=== PATIENT | female | born 1955 | race Caucasian/White ===

== ENCOUNTER 2019-05-16 22:08 | Inpatient (IN) | payer OTHER ==
[2019-05-16 22:22] VITALS: BMI 38.9
[2019-05-17] MEDS ORDERED: ALBUTEROL SO4 2.5/IPRATROPIUM 0.5 INH SOL 3 ML VIAL.NEB. NEB ONE ×2 (00:03→00:06)
[2019-05-17 00:04] LABS: EOS % 3.2 % (0-4.5); HEMATOCRIT 34.9 % (32.4-45.2); HEMOGLOBIN 11.5 GM/dL (10.7-15.3); MCH 28.4 pg (25.7-33.7); MCHC 33.1 g/dl (32.0-36.0); MEAN PLT VOLUME 9.5 fl (7.5-11.1); MONO % 9.6 % (3.8-10.2); NEUT % 52.2 % (42.8-82.8); PLATELET COUNT 212 K/MM3 (134-434); RBC 4.06 M/mm3 (3.60-5.2); RDW 14.9 % (11.6-15.6); WHITE BLOOD COUNT 5.6 K/mm3 (4.0-10.0)
[2019-05-17 00:18] LABS: INR 1.01 (0.83-1.09); PROTHROMBIN TIME (PATIENT) 11.9 SEC (9.7-13.0)
[2019-05-17 00:20] LABS: ACTIVATED PTT 29.9 SECONDS (25.2-36.5)
--- NOTE | 2019-05-17 00:40 | PDOC ---
History of Present Illness - General Chief Complaint: Edema Stated Complaint: SENT BY PCP/LEG SWELLING Time Seen by Provider: 05/16/19 23:13 - History of Present Illness Initial Comments: Dariela Da Silva is a 64yo woman with a PMH of CHF s/p pacemaker, asthma, s/p bilateral knee replacements who presents with left leg pain, swelling, and redness since Tuesday. She additionally reports that she has felt "dizzy" and lost her balance for 2-3 days; she says her entire left side feels numb and weak. Ms Da Silva says that the left leg swelling first started 5 days ago, but she was reluctant to come to the ED. She was attempting to deal with the pain at home, but it has not lessened. The leg is tender to touch, especially at the posterior calf and behind the knee. She has had difficulty ambulating due to the pain. She denies any injury, fall, or other trauma to the leg. She has not traveled recently, does not take hormone supplements, has not been immobilized, and has no history of cancer; however, she states that both her parents had blood clots. She is not sure what the circumstances were for either incident. In addition to the swelling and pain, Ms Da Silva also says that the left side, the leg more than the arm, feels numb and weak for a few days. She is not sure exactly when this started. She denies any acute onset of difficulty breathing though notes that her asthma has been bothering her. She denies fevers, chest pain, or other recent symptoms. She has been taking her medications as prescribed. Past History - Past Medical History Allergies/Adverse Reactions: Allergies Allergy/AdvReac Type Severity Reaction Status Date / Time No Known Drug Allergies Allergy Verified 05/16/19 22:22 Home Medications: Ambulatory Orders Alprazolam 0.5 mg PO BID 05/16/19 Carvedilol 25 mg PO DAILY 05/16/19 Chlorthalidone 25 mg PO DAILY 05/16/19 Montelukast Na [Singulair -] 10 mg PO HS 05/16/19 Sertraline HCl [Zoloft] 100 mg PO DAILY 05/16/19 Spironolactone 25 mg PO DAILY 05/16/19 Albuterol 2.5/Ipratropium 0.5 [Duoneb -] 1 amp NEB PRN 05/17/19 Albuterol Sulfate [Proair Hfa] 8.5 gm IH PRN 05/17/19 Calcium (Oyster Shell) [Os-Uriah 500Mg -] 500 mg PO DAILY 05/17/19 Cyanocobalamin (Vitamin B-12) [Vitamin B12] 2,500 mcg PO DAILY 05/17/19 Anemia: Yes Asthma: Yes Cardiac Disorders: Yes (HTN) COPD: No CHF: Yes HTN: Yes Psychiatric Problems: Yes (anxiety) Seizures: Yes (2004 X1(STRESS RELATED)) Other medical history: osteoproesis, PPM, - Surgical History Cardiac Surgery: Yes (defib/PPM) Orthopedic Surgery: Yes (LKR -08/2014) - Immunization History Immunization Up to Date: No - Suicide/Smoking/Psychosocial Hx Smoking History: Never smoked Information on smoking cessation initiated: No Hx Alcohol Use: No Drug/Substance Use Hx: No Substance Use Type: None Review of Systems - Review of Systems Comments:: General: No fevers, no chills, no weight or appetite change, no malaise HEENT: No changes in vision, no changes in hearing, no congestion, no sore throat CV: No chest pain, no palpitations, no LE edema Pulm: No SOB, no cough, + wheezing and h/o asthma GI: No nausea or vomiting, no change in bowel habits, no melena : No frequency, no urgency, no dysuria Musc: No back pain, no joint swelling, no recent injury. See HPI Skin: No rash, no lesions, no erythema Endo: No excessive thirst, no heat/cold intolerance Heme: No unusual bruising or bleeding, no swollen glands Neuro: See HPI Vasc: No claudication Psych: No recent change in mood, no SI or HI *Physical Exam - Vital Signs Last Vital Signs Temp Pulse Resp BP Pulse Ox 98.4 F 60 18 148/58 L 100 05/16/19 22:18 05/16/19 22:18 05/16/19 22:18 05/16/19 22:18 05/16/19 22:18 - Physical Exam Comments: General: Comfortable, no acute distress HEENT: PERRL, EOMI, MMM, voice normal, normal neck ROM Cards: RRR, no murmur appreciated Pulm: Comfortable on room air, wheezing b/l Abd: Soft, nontender, nondistended Ext: Atraumatic. 2+ BLE edema with visible swelling and erythema of the left leg below the knee. LLE tender to light palpatin at posterior calf and popliteal fossa. Unable to hold either leg off the bed, but left falls immediate and right is held up for 1-2 seconds. Vasc: Extremities WWP Skin: Normal color, no rashes or lesions Neuro: A&Ox3, CN grossly intact, normal speech, Rt arm with trace drift. Left leg appears weaker than right, as above. Sensation to light touch feels "different" on entire left side (forehead to feet) Psych: Mood appropriate to situation ED Treatment Course - LABORATORY CBC & Chemistry Diagram: 05/16/19 23:55 05/16/19 23:55 - ADDITIONAL ORDERS Additional order review: Laboratory Results 05/16/19 23:50 PT with INR 11.90 INR 1.01 PTT (Actin FS) 29.9 05/16/19 23:55 RBC 4.06 MCV 86.0 MCHC 33.1 RDW 14.9 MPV 9.5 Neutrophils % 52.2 Lymphocytes % 34.0 Monocytes % 9.6 Eosinophils % 3.2 Basophils % 1.0 - Medications Given in the ED: ED Medications Discontinued Medications Generic Name Dose Route Start Last Admin Trade Name Freq PRN Reason Stop Dose Admin Albuterol/Ipratropium 3 amp 05/17/19 00:03 05/17/19 00:11 Duoneb - NEB 05/17/19 00:04 3 amp ONCE ONE Administration Medical Decision Making - Medical Decision Making 05/17/19 00:35 Dariela Da Silva is a 64yo woman with a PMH of CHF s/p pacemaker, asthma, s/p bilateral knee replacements who presents with LLE pain, swelling and erythema for 5 days as well as several days of left-sided weakness and sensory changes. - LLE swelling concerning for DVT, especially with family history of clots. Duplex ordered - Pt appears to be weaker on the left than the right. Symptoms are not new, but concerning for possible CVA several days ago. CT head ordered for evaluatin - CBC, CMP, coags, T&S, CXR, EKG - Wheezing on exam. Duonebs and steroids ordered for asthma 05/17/19 00:43 - Signed out to Dr Bardales for the remainder of her ED care. Discussed with Rosa Maria Hernández and Taran. Carmina Harry PGY2 *DC/Admit/Observation/Transfer Diagnosis at time of Disposition: Left leg swelling, Left-sided weakness, Wheezing - Referrals Referrals: Rachel Schmidt [Primary Care Provider] - - Patient Instructions - Post Discharge Activity
[2019-05-17 00:57] LABS: N-TERMINAL BNP 66.6 pg/ml (5-125)
--- NOTE | 2019-05-17 01:22 | PDOC ---
*Physical Exam - Vital Signs Last Vital Signs Temp Pulse Resp BP Pulse Ox 98.4 F 60 18 148/58 L 100 05/16/19 22:18 05/16/19 22:18 05/16/19 22:18 05/16/19 22:18 05/16/19 22:18 ED Treatment Course - LABORATORY CBC & Chemistry Diagram: 05/16/19 23:55 05/17/19 01:29 - ADDITIONAL ORDERS Additional order review: Laboratory Results 05/16/19 05/16/19 05/16/19 23:55 23:55 23:50 PT with INR INR PTT (Actin FS) Sodium Cancelled Potassium Cancelled Chloride Cancelled Carbon Dioxide Cancelled Anion Gap Cancelled BUN Cancelled Creatinine Cancelled Est GFR (CKD-EPI)AfAm Cancelled Est GFR (CKD-EPI)NonAf Cancelled Random Glucose Cancelled Calcium Cancelled Total Bilirubin Cancelled AST Cancelled ALT Cancelled Alkaline Phosphatase Cancelled Creatine Kinase 72 Troponin I < 0.02 B-Natriuretic Peptide 66.6 Total Protein Cancelled Albumin Cancelled Blood Type O POSITIVE Antibody Screen Negative 05/16/19 23:50 PT with INR 11.90 INR 1.01 PTT (Actin FS) 29.9 Sodium Potassium Chloride Carbon Dioxide Anion Gap BUN Creatinine Est GFR (CKD-EPI)AfAm Est GFR (CKD-EPI)NonAf Random Glucose Calcium Total Bilirubin AST ALT Alkaline Phosphatase Creatine Kinase Troponin I B-Natriuretic Peptide Total Protein Albumin Blood Type Antibody Screen 05/16/19 23:55 RBC 4.06 MCV 86.0 MCHC 33.1 RDW 14.9 MPV 9.5 Neutrophils % 52.2 Lymphocytes % 34.0 Monocytes % 9.6 Eosinophils % 3.2 Basophils % 1.0 - Medications Given in the ED: ED Medications Discontinued Medications Generic Name Dose Route Start Last Admin Trade Name Freq PRN Reason Stop Dose Admin Albuterol/Ipratropium 3 amp 05/17/19 00:03 05/17/19 00:11 Duoneb - NEB 05/17/19 00:04 3 amp ONCE ONE Administration Medical Decision Making - Medical Decision Making Pt was signed out to me by resident Dr. Harry, who explained the presentation, ED course, any pending results, and needed interventions. Pending results include non-contrast CT head and b/l LE doppler to eval for DVT. Pt is currently stable and is in imaging. LE doppler showed no evidence of DVT. Pending head CT. 05/17/19 01:[address] with no acute pathology. CMP showed Ca of 6.0 Added on Mg and Phos, both WNL Hospitalist team accepted pt for admission for further work-up. 05/17/19 04:37 *DC/Admit/Observation/Transfer Diagnosis at time of Disposition: Left leg swelling, Left-sided weakness, Wheezing, Hypocalcemia - Discharge Dispostion Condition at time of disposition: Stable Decision to Admit order: Yes - Referrals Referrals: Rachel Schmidt [Primary Care Provider] - - Patient Instructions - Post Discharge Activity
[2019-05-17 02:56] LABS: ALK PHOS 86 U/L (45-117); ANION GAP 6 MMOL/L (8-16); BILIRUBIN,TOTAL 0.2 mg/dL (0.2-1); BLOOD UREA NITROGEN 22.4 mg/dL (7-18); CHLORIDE 106 mmol/L (98-107); CO2 28 mmol/L (21-32); CREATININE 1.1 mg/dL (0.55-1.3); GLUCOSE,RANDOM 98 mg/dL (74-106); POTASSIUM 3.6 mmol/L (3.5-5.1); SGOT/AST 18 U/L (15-37); SGPT/ALT 18 U/L (13-61); SODIUM 139 mmol/L (136-145); TOT PROT 7.5 g/dl (6.4-8.2)
[2019-05-17 02:58] LABS: EPI CELLS 3.5 /HPF (0-5/HPF); HYALINE CASTS 3 /lpf (0-8); URINE APPEARANCE CLEAR; URINE BACTERIA 43.7 /hpf (NEGATIVE); URINE BILIRUBIN NEGATIVE (NEGATIVE); URINE COLOR YELLOW; URINE GLUCOSE (UA) NEGATIVE (NEGATIVE); URINE KETONE NEGATIVE (NEGATIVE); URINE LEUK ESTERASE 2+ (NEGATIVE); URINE NITRITE NEGATIVE (NEGATIVE); URINE PROTEIN NEGATIVE (NEGATIVE); URINE RBC 1 /hpf (0-4); URINE UROBILINOGEN 0.2 mg/dL (0.2-1.0); URINE WBC 9 /hpf (0-5)
--- NOTE | 2019-05-17 03:21 | PDOC ---
Documentation entered by Taras Lemus SCRIBE, acting as scribe for Rachel Hernández DO. Rachel Hernández DO: This documentation has been prepared by the Allan lepe Elijah, SCRIBE, under my direction and personally reviewed by me in its entirety. I confirm that the documentation accurately reflects all work , treatment, procedures, and medical decision making performed by me. Attending Attestation - Resident Resident Name: Carmina Harry - ED Attending Attestation I have performed the following: I have examined & evaluated the patient, The case was reviewed & discussed with the resident, I agree w/resident's findings & plan - HPI HPI: 05/16/19 23:57 Patient is a 64 year old female with a significant past medical history of HTN, CHF, HLD, DM and Pacemaker who presents to the ED with bilateral Leg swelling (L >R) lasting for x3 days. The patient also associates some fatigue, dry cough, and some SOB. Denies Fever, Chills, Nausea, and Vomiting Allergies: SEBASTIAN PCP: Dr. Schmidt - Physicial Exam PE: 05/16/19 23:57 Agree with Resident's Exam - Medical Decision Making 05/17/19 03:20 64-year-old female with generalized fatigue and leg swelling Labs reveal a critical level hypocalcemia of 6 Otherwise labs were unremarkable Will add on phosphorus level as well as magnesium and admitted to medical service for further evaluation
[2019-05-17 03:49] LABS: MAGNESIUM 2.2 mg/dL (1.8-2.4)
[2019-05-17] MEDS ORDERED: CALCIUM GLUCONATE 10% - 1,000 MG/10 ML VIAL IVPB ONE (04:37)
[2019-05-17] MEDS ORDERED: CALCIUM GLUCONATE 10% - 1,000 MG/10 ML VIAL ONE (04:49)
--- NOTE | 2019-05-17 06:14 | HP ---
CHIEF COMPLAINT: b/l leg swelling/pain for 3 days, fatigue PCP: Dr. Alexander HISTORY OF PRESENT ILLNESS: 64 year old female with a significant past medical history of HTN,HLD, CHF and s/p Pacemaker,anemia, asthma,s/p b/l knee replacement arrived to ED with bilateral Leg swelling, pain (L>R) for past 3 days, also complain of fatigue and left side weakness. Patient complains both legs very tender especially at the posterior calf and behind the knee, difficulty ambulating due to the pain. She denies any injury,fall, or other trauma to the leg. Patient denies fevers, chest pain. ER course was notable for: (1) LE doppler negative , pending Ct kavya (2)hypoglycemia, following Mg+ and phos level (3) Recent Travel:NO PAST MEDICAL HISTORY:Anemia, Asthma, HTN, CHF, Anxiety , Seizure ( 2004 x1 stress induced), OP PAST SURGICAL HISTORY:b/l knee ( right knee 15 years ago, left knee 5 years ago) , defib/PPM Social History: Smoking:no Alcohol:no Drugs: no Allergies: no allergies No Known Drug Allergies Allergy (Verified 05/16/19 22:22) HOME MEDICATIONS: Home Medications Medication Instructions Recorded Alprazolam 0.5 mg PO BID 05/16/19 Carvedilol 25 mg PO DAILY 05/16/19 Chlorthalidone 25 mg PO DAILY 05/16/19 Montelukast Na [Singulair -] 10 mg PO HS 05/16/19 Sertraline HCl [Zoloft] 100 mg PO DAILY 05/16/19 Spironolactone 25 mg PO DAILY 05/16/19 Albuterol 2.5/Ipratropium 0.5 1 amp NEB PRN 05/17/19 [Duoneb -] Albuterol Sulfate [Proair Hfa] 8.5 gm IH PRN 05/17/19 Calcium (Oyster Shell) [Os-Uriah 500 mg PO DAILY 05/17/19 500Mg -] Cyanocobalamin (Vitamin B-12) 2,500 mcg PO DAILY 05/17/19 [Vitamin B12] REVIEW OF SYSTEMS General: No weight or appetite change, fever, chills HEENT: No congestion, sore throat, no change in vision, hearing Cardio: No chest pain, no palpitations, no LE edema Pulm: + wheezing and h/o asthma, no sob GI: No nausea or vomiting, no change in bowel habits : No frequency, no urgency, no dysuria Musc: b/l leg pain, h/o b/l knee replacement Skin: No rash, no lesions, no erythema Neuro: awake,alert PHYSICAL EXAMINATION Vital Signs - 24 hr 05/16/19 05/16/19 05/17/19 22:18 23:00 03:39 Temperature 98.4 F 97.7 F Pulse Rate 60 Pulse Rate [ 52 L Left Radial] Respiratory 18 20 Rate Blood Pressure 148/58 L Blood Pressure 144/60 [Left Arm] O2 Sat by Pulse 100 99 99 Oximetry (%) 05/17/19 03:45 Temperature Pulse Rate 52 L Pulse Rate [ Left Radial] Respiratory Rate Blood Pressure Blood Pressure [Left Arm] O2 Sat by Pulse 99 Oximetry (%) GENERAL: Awake, alert, NAD HEENT: NC/AT, EOMI, PERRLA NECK: No JVD LUNGS: air entry equal, + wheezing b/l HEART: Regular rate and rhythm, normal S1 and S2 without murmur, rub or gallop. ABDOMEN: Soft, nontender, not distended, normoactive bowel sounds, no guarding, no rebound, no masses. . MUSCULOSKELETAL: Normal range of motion at all joints. +2 edema b/l, swelling, mild redness to left leg, b/l lower leg tender to touch NEUROLOGICAL: Normal speech. Normal gait, left leg weak than right, more sensitive to touch b/l legs " tender to touch" PSYCHIATRIC: Cooperative. Good eye contact SKIN: Warm, dry, no rashes or lesions noted Laboratory Results - last 24 hr 05/16/19 05/16/19 05/16/19 23:50 23:50 23:55 WBC RBC Hgb Hct MCV MCH MCHC RDW Plt Count MPV Absolute Neuts (auto) Neutrophils % Lymphocytes % Monocytes % Eosinophils % Basophils % Nucleated RBC % PT with INR 11.90 INR 1.01 PTT (Actin FS) 29.9 Sodium Potassium Chloride Carbon Dioxide Anion Gap BUN Creatinine Est GFR (CKD-EPI)AfAm Est GFR (CKD-EPI)NonAf Random Glucose Calcium Phosphorus Magnesium Total Bilirubin AST ALT Alkaline Phosphatase Creatine Kinase 72 Troponin I < 0.02 B-Natriuretic Peptide 66.6 Total Protein Albumin Urine Color Urine Appearance Urine pH Ur Specific Commerce Urine Protein Urine Glucose (UA) Urine Ketones Urine Blood Urine Nitrite Urine Bilirubin Urine Urobilinogen Ur Leukocyte Esterase Urine WBC (Auto) Urine RBC (Auto) Urine Casts (Auto) U Epithel Cells (Auto) Urine Bacteria (Auto) Blood Type O POSITIVE Antibody Screen Negative 05/16/19 05/16/19 05/17/19 23:55 23:55 01:29 WBC 5.6 RBC 4.06 Hgb 11.5 Hct 34.9 MCV 86.0 MCH 28.4 MCHC 33.1 RDW 14.9 Plt Count 212 MPV 9.5 Absolute Neuts (auto) 2.9 Neutrophils % 52.2 Lymphocytes % 34.0 Monocytes % 9.6 Eosinophils % 3.2 Basophils % 1.0 Nucleated RBC % 0 PT with INR INR PTT (Actin FS) Sodium Cancelled 139 Potassium Cancelled 3.6 Chloride Cancelled 106 Carbon Dioxide Cancelled 28 Anion Gap Cancelled 6 L BUN Cancelled 22.4 H Creatinine Cancelled 1.1 Est GFR (CKD-EPI)AfAm Cancelled 61.44 Est GFR (CKD-EPI)NonAf Cancelled 53.01 Random Glucose Cancelled 98 Calcium Cancelled 6.0 L* Phosphorus 4.0 Magnesium 2.2 Total Bilirubin Cancelled 0.2 AST Cancelled 18 ALT Cancelled 18 Alkaline Phosphatase Cancelled 86 Creatine Kinase 57 Troponin I < 0.02 B-Natriuretic Peptide 59.0 Total Protein Cancelled 7.5 Albumin Cancelled 4.0 Urine Color Urine Appearance Urine pH Ur Specific Commerce Urine Protein Urine Glucose (UA) Urine Ketones Urine Blood Urine Nitrite Urine Bilirubin Urine Urobilinogen Ur Leukocyte Esterase Urine WBC (Auto) Urine RBC (Auto) Urine Casts (Auto) U Epithel Cells (Auto) Urine Bacteria (Auto) Blood Type Antibody Screen 05/17/19 02:45 WBC RBC Hgb Hct MCV MCH MCHC RDW Plt Count MPV Absolute Neuts (auto) Neutrophils % Lymphocytes % Monocytes % Eosinophils % Basophils % Nucleated RBC % PT with INR INR PTT (Actin FS) Sodium Potassium Chloride Carbon Dioxide Anion Gap BUN Creatinine Est GFR (CKD-EPI)AfAm Est GFR (CKD-EPI)NonAf Random Glucose Calcium Phosphorus Magnesium Total Bilirubin AST ALT Alkaline Phosphatase Creatine Kinase Troponin I B-Natriuretic Peptide Total Protein Albumin Urine Color Yellow Urine Appearance Clear Urine pH 6.0 Ur Specific Commerce 1.014 Urine Protein Negative Urine Glucose (UA) Negative Urine Ketones Negative Urine Blood Negative Urine Nitrite Negative Urine Bilirubin Negative Urine Urobilinogen 0.2 Ur Leukocyte Esterase 2+ H Urine WBC (Auto) 9 Urine RBC (Auto) 1 Urine Casts (Auto) 3 U Epithel Cells (Auto) 3.5 Urine Bacteria (Auto) 43.7 Blood Type Antibody Screen ASSESSMENT/PLAN: 64 year old female with PMhx HTN,HLD, CHF and s/p Pacemaker,anemia, asthma,s/p b /l knee replacement- present to ED for b/l LE pain, swelling and tender to touch (sensory changes) for past 3 days, left side weakness - Doppler LLE: negative - CT head pending Hypocalcemia - supplement iwth calcium gluconate - follow up mg+ and phoso level Asthma - duoneb and steroid - continue with singular HTN/HLD/ CHF s/p pacemaker - continue with coreg, chlorthalidone - continue with Spironolactone Anxiety - Continue with Alprazolam 0.5 bid - Continue with zoloft Problem List - Problem (1) Left leg swelling Assessment/Plan: 64 year old female with PMhx HTN,HLD, CHF and s/p Pacemaker,anemia, asthma,s/p b /l knee replacement- present to ED for b/l LE pain, swelling and tender to touch (sensory changes) for past 3 days, left side weakness - Doppler LLE: negative - CT head pending Code(s): M79.89 - OTHER SPECIFIED SOFT TISSUE DISORDERS (2) Left-sided weakness Assessment/Plan: 64 year old female with PMhx HTN,HLD, CHF and s/p Pacemaker,anemia, asthma,s/p b /l knee replacement- present to ED for b/l LE pain, swelling and tender to touch (sensory changes) for past 3 days, left side weakness - Doppler LLE: negative - CT head pending Code(s): R53.1 - WEAKNESS (3) Hypocalcemia Assessment/Plan: 64 year old female with PMhx HTN,HLD, CHF and s/p Pacemaker,anemia, asthma,s/p b /l knee replacement- present to ED for b/l LE pain, swelling and tender to touch (sensory changes) for past 3 days, left side weakness - Doppler LLE: negative - CT head pending Hypocalcemia - supplement iwth calcium gluconate - follow up mg+ and phoso level Code(s): E83.51 - HYPOCALCEMIA (4) Asthma Assessment/Plan: Asthma - duoneb and steroid - continue with singular Code(s): J45.909 - UNSPECIFIED ASTHMA, UNCOMPLICATED (5) HTN (hypertension) Assessment/Plan: HTN/HLD/ CHF s/p pacemaker - continue with coreg, chlorthalidone - continue with Spironolactone Code(s): I10 - ESSENTIAL (PRIMARY) HYPERTENSION (6) CHF (congestive heart failure) Assessment/Plan: HTN/HLD/ CHF s/p pacemaker - continue with coreg, chlorthalidone - continue with Spironolactone Code(s): I50.9 - HEART FAILURE, UNSPECIFIED (7) Pacemaker Assessment/Plan: HTN/HLD/ CHF s/p pacemaker - continue with coreg, chlorthalidone - continue with Spironolactone Code(s): Z95.0 - PRESENCE OF CARDIAC PACEMAKER (8) Anxiety Assessment/Plan: Anxiety - Continue with Alprazolam 0.5 bid - Continue with zoloft Code(s): F41.9 - ANXIETY DISORDER, UNSPECIFIED Visit type - Emergency Visit Emergency Visit: Yes ED Registration Date: 05/17/19 Care time: The patient presented to the Emergency Department on the above date and was hospitalized for further evaluation of their emergent condition. - New Patient This patient is new to me today: Yes Date on this admission: 05/17/19 - Critical Care Critical Care patient: No
[2019-05-17] MEDS ORDERED: ALBUTEROL SO4 2.5/IPRATROPIUM 0.5 INH SOL 3 ML VIAL.NEB. NEB PRN (06:21)
--- NOTE | 2019-05-17 10:13 | EKG ---
Test Reason : Blood Pressure : / mmHG Vent. Rate : 055 BPM Atrial Rate : 055 BPM P-R Int : 168 ms QRS Dur : 140 ms QT Int : 532 ms P-R-T Axes : 051 -66 046 degrees QTc Int : 508 ms POOR DATA QUALITY, INTERPRETATION MAY BE ADVERSELY AFFECTED Atrial-sensed ventricular-paced rhythm Biventricular pacemaker detected ABNORMAL ECG NO PREVIOUS ECGS AVAILABLE Confirmed by DAVION MONTANA MD ([id number]) on 05/17/2019 10:13:31 AM Referred By: Confirmed By:DAVION MONTANA MD
[2019-05-17] MEDS: CYANOCOBALAMIN 1,000 MCG TABLET (FP) PO SCH (10:16)
[2019-05-17] MEDS: SERTRALINE HCL 50 MG TABLET (FP) PO SCH (10:17)
[2019-05-17] MEDS: SPIRONOLACTONE 25 MG TABLET (FP) PO SCH (10:17)
[2019-05-17] MEDS: CALCIUM (OYSTER SHELL) 500 MG TABLET (FP) PO SCH (10:17)
[2019-05-17] MEDS: CHLORTHALIDONE 25 MG TABLET PO SCH (10:17)
[2019-05-17] MEDS: CARVEDILOL 25 MG TABLET (FP) PO SCH ×2 (10:17→21:30)
[2019-05-17] MEDS: ALPRAZolam 0.25 MG TABLET PO SCH ×2 (10:17→21:30)
--- NOTE | 2019-05-17 17:25 | PN ---
Progress Note, Physician Chief Complaint: BLLE edema BLLE pain and weakness Hypocalcemia History of Present Illness: NAD in bed family at bedside c/o of BLLE pain which has improved, swelling has improved as well - Current Medication List Current Medications: Active Medications Albuterol/Ipratropium (Duoneb -) 1 amp NEB Q6H PRN PRN Reason: SHORTNESS OF BREATH Alprazolam (Xanax -) 0.5 mg PO BID [facility] Last Admin: 05/17/19 10:17 Dose: 0.5 mg Calcium Carbonate (Os-Uriah 500mg -) 500 mg PO DAILY [facility] Last Admin: 05/17/19 10:17 Dose: 500 mg Carvedilol (Coreg -) 25 mg PO BID [facility] Last Admin: 05/17/19 10:17 Dose: 25 mg Chlorthalidone (Hygroton -) 25 mg PO DAILY [facility] Last Admin: 05/17/19 10:17 Dose: 25 mg Cyanocobalamin (Vitamin B12 -) 2,000 mcg PO DAILY [facility] Last Admin: 05/17/19 10:16 Dose: 2,000 mcg Montelukast Sodium (Singulair -) 10 mg PO [facility] Sertraline HCl (Zoloft -) 100 mg PO DAILY [facility] Last Admin: 05/17/19 10:17 Dose: 100 mg Spironolactone (Aldactone -) 25 mg PO DAILY [facility] Last Admin: 05/17/19 10:17 Dose: 25 mg - Objective Vital Signs: Vital Signs Temperature 97.7 F 05/17/19 13:51 Pulse Rate 58 L 05/17/19 13:51 Respiratory Rate 20 05/17/19 13:51 Blood Pressure 144/77 05/17/19 13:51 O2 Sat by Pulse Oximetry (%) 97 05/17/19 05:59 Constitutional: Yes: Well Nourished, No Distress, Calm, Obese Cardiovascular: Yes: Regular Rate and Rhythm Respiratory: Yes: Regular Gastrointestinal: Yes: Normal Bowel Sounds, Soft, Abdomen, Obese Genitourinary: Yes: WNL Musculoskeletal: Yes: Back Pain (unable to lie flat, + SLT L-30 degrees; R-45 degrees) Extremities: Yes: WNL Edema: No Peripheral Pulses WNL: Yes Neurological: Yes: Alert, Oriented, Numbness (Left foot) Psychiatric: Yes: Alert, Oriented Labs: CBC, BMP 05/16/19 23:55 05/17/19 01:29 INR, PTT INR 1.01 (0.83-1.09) 05/16/19 23:50 Problem List - Problems (1) Lumbar radicular pain Assessment/Plan: -Neurology consult -CT Lumbar spine, unable to do MRI due to PPM -EMG BLLE Code(s): M54.16 - RADICULOPATHY, LUMBAR REGION (2) HTN (hypertension) Assessment/Plan: -Continue home meds Code(s): I10 - ESSENTIAL (PRIMARY) HYPERTENSION (3) Hypocalcemia Assessment/Plan: -Calcium gluconate given in ER -Recheck Ca+ in AM -Hold spironolactone- can cause electrolyte abnormality -Nephrology consult -Check PTH -Mg normal Code(s): E83.51 - HYPOCALCEMIA (4) Pacemaker Code(s): Z95.0 - PRESENCE OF CARDIAC PACEMAKER Assessment/Plan see problem list
[2019-05-17] MEDS: MONTELUKAST NA 10 MG TABLET PO SCH (21:30)
[2019-05-18 07:29] LABS: HEMATOCRIT 32.2 % (32.4-45.2); HEMOGLOBIN 10.6 GM/dL (10.7-15.3); MCH 28.1 pg (25.7-33.7); MCHC 33.1 g/dl (32.0-36.0); MEAN CELL VOLUME 84.9 fl (80-96); MEAN PLT VOLUME 9.2 fl (7.5-11.1); PLATELET COUNT 202 K/MM3 (134-434); RBC 3.79 M/mm3 (3.60-5.2); RDW 14.9 % (11.6-15.6); WHITE BLOOD COUNT 4.7 K/mm3 (4.0-10.0)
[2019-05-18 08:21] LABS: ALBUMIN 3.8 g/dl (3.4-5.0); BILIRUBIN,TOTAL 0.4 mg/dL (0.2-1); BLOOD UREA NITROGEN 14.7 mg/dL (7-18); CALCIUM 8.7 mg/dL (8.5-10.1); CREATININE 0.8 mg/dL (0.55-1.3); POTASSIUM 3.9 mmol/L (3.5-5.1); TOT PROT 6.9 g/dl (6.4-8.2)
[2019-05-18] MEDS: CYANOCOBALAMIN 1,000 MCG TABLET (FP) PO SCH (10:40)
[2019-05-18] MEDS: CARVEDILOL 25 MG TABLET (FP) PO SCH ×2 (10:40→22:09)
[2019-05-18] MEDS: SERTRALINE HCL 50 MG TABLET (FP) PO SCH (10:40)
[2019-05-18] MEDS: ALPRAZolam 0.25 MG TABLET PO SCH ×2 (10:40→22:09)
[2019-05-18] MEDS: CHLORTHALIDONE 25 MG TABLET PO SCH (10:41)
[2019-05-18] MEDS: CALCIUM (OYSTER SHELL) 500 MG TABLET (FP) PO SCH (10:41)
--- NOTE | 2019-05-18 12:48 | PN ---
Progress Note, Physician Chief Complaint: BLLE edema BLLE pain and weakness Hypocalcemia History of Present Illness: NAD in bed c/o of BLLE pain which has improved, swelling has improved as well - Current Medication List Current Medications: Active Medications Albuterol/Ipratropium (Duoneb -) 1 amp NEB Q6H PRN PRN Reason: SHORTNESS OF BREATH Alprazolam (Xanax -) 0.5 mg PO BID [facility] Last Admin: 05/18/19 10:40 Dose: 0.5 mg Calcium Carbonate (Os-Uriah 500mg -) 500 mg PO DAILY [facility] Last Admin: 05/18/19 10:41 Dose: 500 mg Carvedilol (Coreg -) 25 mg PO BID [facility] Last Admin: 05/18/19 10:40 Dose: 25 mg Chlorthalidone (Hygroton -) 25 mg PO DAILY [facility] Last Admin: 05/18/19 10:41 Dose: 25 mg Cyanocobalamin (Vitamin B12 -) 2,000 mcg PO DAILY [facility] Last Admin: 05/18/19 10:40 Dose: 2,000 mcg Cyanocobalamin (Vitamin B12 Injection -) 1,000 mcg IM DAILY [facility] Montelukast Sodium (Singulair -) 10 mg PO HS [facility] Last Admin: 05/17/19 21:30 Dose: 10 mg Sertraline HCl (Zoloft -) 100 mg PO DAILY [facility] Last Admin: 05/18/19 10:40 Dose: 100 mg Spironolactone (Aldactone -) 25 mg PO DAILY [facility] Last Admin: 05/17/19 10:17 Dose: 25 mg - Objective Vital Signs: Vital Signs Temperature 98 F 05/18/19 09:00 Pulse Rate 62 05/18/19 09:00 Respiratory Rate 20 05/18/19 09:00 Blood Pressure 137/60 05/18/19 09:00 O2 Sat by Pulse Oximetry (%) 95 05/18/19 09:00 Constitutional: Yes: Well Nourished, No Distress, Calm Cardiovascular: Yes: Regular Rate and Rhythm Respiratory: Yes: Regular Gastrointestinal: Yes: Normal Bowel Sounds, Soft, Abdomen, Obese Musculoskeletal: Yes: Back Pain Extremities: Yes: WNL Edema: No Peripheral Pulses WNL: Yes Neurological: Yes: Alert, Oriented Psychiatric: Yes: Alert, Oriented Labs: CBC, BMP 05/18/19 06:16 05/18/19 06:16 INR, PTT INR 1.01 (0.83-1.09) 05/16/19 23:50 Problem List - Problems (1) Lumbar radicular pain Assessment/Plan: -Neurology consult -CT Lumbar spine pending, unable to do MRI due to PPM -EMG BLLE Code(s): M54.16 - RADICULOPATHY, LUMBAR REGION (2) HTN (hypertension) Assessment/Plan: -Continue home meds Code(s): I10 - ESSENTIAL (PRIMARY) HYPERTENSION (3) Hypocalcemia Assessment/Plan: -resolved -Calcium gluconate given in ER -Hold spironolactone- can cause electrolyte abnormality -Nephrology consult -PTH pending -Mg normal Code(s): E83.51 - HYPOCALCEMIA (4) Pacemaker Code(s): Z95.0 - PRESENCE OF CARDIAC PACEMAKER Assessment/Plan see problem list
--- NOTE | 2019-05-18 13:20 | CONSULT ---
Consult - text type - Consultation Consultation Note: Renal consult for Hypocalcemia This is a 64 year old woman with history of hypertension, hyperlipidemia, CHF, PPM, Asthma, bilateral knee replacements who presented with c/o leg swelling and left side weakness and noted to have Ca. PMHx: as above Allergies: NKDA Family Hx: NC Social Hx: No T/A/D ROS: as per HPI, all other pertinent ros negative Home Medications Medication Instructions Recorded Alprazolam 0.5 mg PO BID 05/16/19 Carvedilol 25 mg PO DAILY 05/16/19 Chlorthalidone 25 mg PO DAILY 05/16/19 Montelukast Na [Singulair -] 10 mg PO HS 05/16/19 Sertraline HCl [Zoloft] 100 mg PO DAILY 05/16/19 Spironolactone 25 mg PO DAILY 05/16/19 Albuterol 2.5/Ipratropium 0.5 1 amp NEB PRN 05/17/19 [Duoneb -] Albuterol Sulfate [Proair Hfa] 8.5 gm IH PRN 05/17/19 Calcium (Oyster Shell) [Os-Uriah 500 mg PO DAILY 05/17/19 500Mg -] Cyanocobalamin (Vitamin B-12) 2,500 mcg PO DAILY 05/17/19 [Vitamin B12] Vital Signs Temperature 98 F 05/18/19 09:00 Pulse Rate 62 05/18/19 09:00 Respiratory Rate 20 05/18/19 09:00 Blood Pressure 137/60 05/18/19 09:00 O2 Sat by Pulse Oximetry (%) 95 05/18/19 09:00 Intake & Output 05/15/19 05/16/19 05/17/19 05/18/19 23:59 23:59 23:59 23:59 Intake Total 600 250 Balance 600 250 Weight 99.79 kg 115.808 kg NAD awake and alert neck supple RRR, no M/R CTA soft NT/ND no LE edema CBC, BMP 05/18/19 06:16 05/18/19 06:16 Current Medications Albuterol/Ipratropium (Duoneb -) 1 amp NEB Q6H PRN PRN Reason: SHORTNESS OF BREATH Alprazolam (Xanax -) 0.5 mg PO BID [facility] Last Admin: 05/18/19 10:40 Dose: 0.5 mg Calcium Carbonate (Os-Uriah 500mg -) 500 mg PO DAILY [facility] Last Admin: 05/18/19 10:41 Dose: 500 mg Carvedilol (Coreg -) 25 mg PO BID [facility] Last Admin: 05/18/19 10:40 Dose: 25 mg Chlorthalidone (Hygroton -) 25 mg PO DAILY [facility] Last Admin: 05/18/19 10:41 Dose: 25 mg Cyanocobalamin (Vitamin B12 Injection -) 1,000 mcg IM DAILY [facility] Montelukast Sodium (Singulair -) 10 mg PO HS [facility] Last Admin: 05/17/19 21:30 Dose: 10 mg Sertraline HCl (Zoloft -) 100 mg PO DAILY [facility] Last Admin: 05/18/19 10:40 Dose: 100 mg Spironolactone (Aldactone -) 25 mg PO DAILY [facility] Last Admin: 05/17/19 10:17 Dose: 25 mg 64 year old woman with history of hypertension, hyperlipidemia, CHF, PPM, Asthma, bilateral knee replacements who presented with c/o leg swelling and left side weakness and noted to have Ca. #Hypocalcemia (etiology unclear) #LE swelling #Weakness #Back pain #Hypertension Serum Ca is improved to within normal limits today. She received calcium gluconate 1g IVPB in the ER. Unclear if the low ca was a lab error as it is WNL today. PTH is drawn, results pending Will repeat BMP now pt is asymptomatic at the present time continue work up as per primary should be on Calcium and Vit D on discharge if serum Ca is stable can be discharged with outpatient follow up Thank you Lm Cohen DO
[2019-05-18 14:52] LABS: BLOOD UREA NITROGEN 16.6 mg/dL (7-18); CALCIUM 9.2 mg/dL (8.5-10.1); CREATININE 0.8 mg/dL (0.55-1.3); POTASSIUM 3.9 mmol/L (3.5-5.1)
--- NOTE | 2019-05-18 15:31 | CON.NEURO ---
Consult Consult Specialty:: Elizabeth Referred by:: Benjamin Reason for Consultation:: weaskness - History of Present Illness History of Present Illness: 64-year-old right-handed female patient with multiple medical problem including Permanent pacemaker Anemia Hyperlipidemia Hypertension Neuropathy presented to the hospital with a chief complain of leg weakness leg edema heaviness. No report of any recent travel no report of any recent weight loss or weight gain. According to the patient since admission to the hospital she feels slightly better about 25% improved. Patient was found to be with low calcium nephrology was called the calcium is improving Patient with mild back pain mild neck pain radiating to the left side with left arm and leg numbness - History Source History Provided By: Patient, Medical Record - Alcohol/Substance Use Hx Alcohol Use: No - Smoking History Smoking history: Never smoked Have you smoked in the past 12 months: No Home Medications - Allergies Allergies/Adverse Reactions: Allergies Allergy/AdvReac Type Severity Reaction Status Date / Time No Known Drug Allergies Allergy Verified 05/16/19 22:22 - Home Medications Home Medications: Ambulatory Orders Alprazolam 0.5 mg PO BID 05/16/19 Carvedilol 25 mg PO DAILY 05/16/19 Chlorthalidone 25 mg PO DAILY 05/16/19 Montelukast Na [Singulair -] 10 mg PO HS 05/16/19 Sertraline HCl [Zoloft] 100 mg PO DAILY 05/16/19 Spironolactone 25 mg PO DAILY 05/16/19 Albuterol 2.5/Ipratropium 0.5 [Duoneb -] 1 amp NEB PRN 05/17/19 Albuterol Sulfate [Proair Hfa] 8.5 gm IH PRN 05/17/19 Calcium (Oyster Shell) [Os-Uriah 500Mg -] 500 mg PO DAILY 05/17/19 Cyanocobalamin (Vitamin B-12) [Vitamin B12] 2,500 mcg PO DAILY 05/17/19 Review of Systems - Review of Systems Constitutional: reports: No Symptoms Eyes: reports: No Symptoms HENT: reports: No Symptoms Neurological: reports: Incoordination, Numbness, Parasthesia, Unsteady Gait Physical Exam-Neuro Vital Signs: Vital Signs Temperature 98.2 F 05/18/19 13:24 Pulse Rate 57 L 05/18/19 13:24 Respiratory Rate 18 05/18/19 13:24 Blood Pressure 115/47 L 05/18/19 13:24 O2 Sat by Pulse Oximetry (%) 95 05/18/19 09:00 Constitutional: Yes: Well Nourished Neck: Yes: WNL Cardiovascular: Yes: WNL Labs: CBC, BMP 05/18/19 06:16 05/18/19 14:00 INR, PTT INR 1.01 (0.83-1.09) 05/16/19 23:50 Imaging - Results Cat Scan: Image Reviewed Problem List - Problems (1) Left-sided weakness Assessment/Plan: 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 Fall precautions. 2. Nerve conduction testing electromyography of the lower extremities 3. Increase by mouth fluid intake. 4. B12 shots. 5. Follow-up with nephrology 6. Physical therapy Thank you very much for referring this patient for neurological consultation Code(s): R53.1 - WEAKNESS
[2019-05-18 15:37] LABS: CALCIUM 9.5 mg/dL (8.5-10.1)
[2019-05-18] MEDS: CYANOCOBALAMIN (VITAMIN B-12) 1000 MCG/1 ML VIAL IM SCH (17:18)
[2019-05-18] MEDS: MONTELUKAST NA 10 MG TABLET PO SCH (22:09)
[2019-05-18] MEDS ORDERED: PT OWN MED DRAWER 7, Y5N ONE (23:56)
[2019-05-19] MEDS ORDERED: ACETAMINOPHEN 325 MG TABLET (FP) PO PRN (03:13)
--- NOTE | 2019-05-19 09:27 | PN ---
Progress Note, Physician History of Present Illness: events noted and chart reviewed Feels better Numbness is better Complains of lower back pain No difficulty with urination - Current Medication List Current Medications: Active Medications Acetaminophen (Tylenol -) 650 mg PO Q4H PRN PRN Reason: HEADACHE Last Admin: 05/19/19 03:26 Dose: 650 mg Albuterol/Ipratropium (Duoneb -) 1 amp NEB Q6H PRN PRN Reason: SHORTNESS OF BREATH Alprazolam (Xanax -) 0.5 mg PO BID [facility] Last Admin: 05/18/19 22:09 Dose: 0.5 mg Calcium Carbonate (Os-Uriah 500mg -) 500 mg PO DAILY [facility] Last Admin: 05/18/19 10:41 Dose: 500 mg Carvedilol (Coreg -) 25 mg PO BID [facility] Last Admin: 05/18/19 22:09 Dose: 25 mg Chlorthalidone (Hygroton -) 25 mg PO DAILY [facility] Last Admin: 05/18/19 10:41 Dose: 25 mg Cyanocobalamin (Vitamin B12 Injection -) 1,000 mcg IM DAILY [facility] Last Admin: 05/18/19 17:18 Dose: 1,000 mcg Montelukast Sodium (Singulair -) 10 mg PO HS [facility] Last Admin: 05/18/19 22:09 Dose: 10 mg Sertraline HCl (Zoloft -) 100 mg PO DAILY [facility] Last Admin: 05/18/19 10:40 Dose: 100 mg Spironolactone (Aldactone -) 25 mg PO DAILY [facility] Last Admin: 05/17/19 10:17 Dose: 25 mg - Objective Vital Signs: Vital Signs Temperature 98.3 F 05/19/19 05:00 Pulse Rate 54 L 05/19/19 05:00 Respiratory Rate 20 05/19/19 05:00 Blood Pressure 144/60 05/19/19 05:00 O2 Sat by Pulse Oximetry (%) 95 05/18/19 21:00 Constitutional: Yes: Well Nourished Eyes: Yes: WNL HENT: Yes: WNL Neurological: Yes: Oriented, Babinski negative ...Motor Strength: WNL Labs: CBC, BMP 05/18/19 06:16 05/18/19 14:00 INR, PTT INR 1.01 (0.83-1.09) 05/16/19 23:50 Problem List - Problems (1) Left-sided weakness Assessment/Plan: Noted the results of the CAT scan of the lumbosacral spine Out of bed to chair Fall precautions PT Lidoderm patches Code(s): R53.1 - WEAKNESS
--- NOTE | 2019-05-19 10:12 | PN ---
Progress Note (short form) - Note Progress Note: RENAL Covrage for Dr Cohen This pt is known to me denies complaints was admitted with edema but is better Last Vital Signs Temp Pulse Resp BP Pulse Ox 98.3 F 54 L 20 144/60 95 05/19/19 05:00 05/19/19 05:00 05/19/19 05:00 05/19/19 05:00 05/18/19 21:00 lungs clear cvs s1s2 rr abd soft ext trace edema neuro a+ox3 CBC, BMP 05/18/19 06:16 05/18/19 14:00 Current Medications Generic Name Dose Route Start Last Admin Trade Name Freq PRN Reason Stop Dose Admin Acetaminophen 650 mg 05/19/19 03:13 05/19/19 03:26 Tylenol - PO 650 mg Q4H PRN Administration HEADACHE Albuterol/Ipratropium 1 amp 05/17/19 06:21 Duoneb - NEB Q6H PRN SHORTNESS OF BREATH Alprazolam 0.5 mg 05/17/19 10:00 05/18/19 22:09 Xanax - PO 0.5 mg BID [facility] Administration Calcium Carbonate 500 mg 05/17/19 10:00 05/18/19 10:41 Os-Uriah 500mg - PO 500 mg DAILY [facility] Administration Carvedilol 25 mg 05/17/19 10:00 05/18/19 22:09 Coreg - PO 25 mg BID [facility] Administration Chlorthalidone 25 mg 05/17/19 10:00 05/18/19 10:41 Hygroton - PO 25 mg DAILY [facility] Administration Cyanocobalamin 1,000 mcg 05/18/19 12:45 05/18/19 17:18 Vitamin B12 Injection - IM 1,000 mcg DAILY [facility] Administration Montelukast Sodium 10 mg 05/17/19 22:00 05/18/19 22:09 Singulair - PO 10 mg HS [facility] Administration Sertraline HCl 100 mg 05/17/19 10:00 05/18/19 10:40 Zoloft - PO 100 mg DAILY [facility] Administration Spironolactone 25 mg 05/17/19 10:00 05/17/19 10:17 Aldactone - PO 25 mg DAILY [facility] Administration IMPRESSION edema likely due to heart failure hypocalcemia was a lab error and was corrected by the lab PLAN would follow prn can be discharged if cleared by cardio MV
--- NOTE | 2019-05-19 10:51 | DS ---
Physical Examination Vital Signs: Vital Signs Temperature 98.3 F 05/19/19 05:00 Pulse Rate 54 L 05/19/19 05:00 Respiratory Rate 20 05/19/19 05:00 Blood Pressure 144/60 05/19/19 05:00 O2 Sat by Pulse Oximetry (%) 95 05/18/19 21:00 Findings/Remarks: 64 year old female with a significant past medical history of HTN,HLD, CHF and s /p Pacemaker,anemia, asthma,s/p b/l knee replacement arrived to ED with bilateral Leg swelling, pain (L>R) for past 3 days, also complain of fatigue and left side weakness. Patient complains both legs very tender especially at the posterior calf and behind the knee, difficulty ambulating due to the pain. She denies any injury,fall, or other trauma to the leg. Patient denies fevers, chest pain. Constitutional: Yes: Well Nourished, No Distress, Calm Cardiovascular: Yes: Regular Rate and Rhythm Respiratory: Yes: Regular Gastrointestinal: Yes: Normal Bowel Sounds, Soft, Abdomen, Obese Musculoskeletal: Yes: Back Pain Extremities: Yes: WNL Edema: No Peripheral Pulses WNL: Yes Neurological: Yes: Alert, Oriented Psychiatric: Yes: Alert, Oriented Labs: CBC, BMP 05/18/19 06:16 05/18/19 14:00 Discharge Summary Reason For Visit: SWELLING OF LEFT LOWER EXTREMITY/HYPOCALCEMIIA Current Active Problems Anxiety (Acute) Asthma (Acute) CHF (congestive heart failure) (Acute) HTN (hypertension) (Acute) Hypocalcemia (Acute) Left leg swelling (Acute) Left-sided weakness (Acute) Lumbar radicular pain (Acute) Pacemaker (Acute) Wheezing (Acute) Hospital Course: Laboratory Last Values WBC 4.7 K/mm3 (4.0-10.0) 05/18/19 06:16 RBC 3.79 M/mm3 (3.60-5.2) 05/18/19 06:16 Hgb 10.6 GM/dL (10.7-15.3) L 05/18/19 06:16 Hct 32.2 % (32.4-45.2) L 05/18/19 06:16 MCV 84.9 fl (80-96) 05/18/19 06:16 MCH 28.1 pg (25.7-33.7) 05/18/19 06:16 MCHC 33.1 g/dl (32.0-36.0) 05/18/19 06:16 RDW 14.9 % (11.6-15.6) 05/18/19 06:16 Plt Count 202 K/MM3 (134-434) 05/18/19 06:16 MPV 9.2 fl (7.5-11.1) 05/18/19 06:16 Absolute Neuts (auto) 2.9 K/mm3 (1.5-8.0) 05/16/19 23:55 Neutrophils % 52.2 % (42.8-82.8) 05/16/19 23:55 Lymphocytes % 34.0 % (8-40) 05/16/19 23:55 Monocytes % 9.6 % (3.8-10.2) 05/16/19 23:55 Eosinophils % 3.2 % (0-4.5) 05/16/19 23:55 Basophils % 1.0 % (0-2.0) 05/16/19 23:55 Nucleated RBC % 0 % (0-0) 05/16/19 23:55 PT with INR 11.90 SEC (9.7-13.0) 05/16/19 23:50 INR 1.01 (0.83-1.09) 05/16/19 23:50 PTT (Actin FS) 29.9 SECONDS (25.2-36.5) 05/16/19 23:50 Sodium 140 mmol/L (136-145) 05/18/19 14:00 Potassium 3.9 mmol/L (3.5-5.1) 05/18/19 14:00 Chloride 106 mmol/L (98-107) 05/18/19 14:00 Carbon Dioxide 28 mmol/L (21-32) 05/18/19 14:00 Anion Gap 7 MMOL/L (8-16) L 05/18/19 14:00 BUN 16.6 mg/dL (7-18) 05/18/19 14:00 Creatinine 0.8 mg/dL (0.55-1.3) 05/18/19 14:00 Est GFR (CKD-EPI)AfAm 90.30 05/18/19 14:00 Est GFR (CKD-EPI)NonAf 77.91 05/18/19 14:00 Random Glucose 120 mg/dL (74-106) H 05/18/19 14:00 Calcium 9.2 mg/dL (8.5-10.1) 05/18/19 14:00 Phosphorus 4.0 mg/dL (2.5-4.9) 05/17/19 01:29 Magnesium 2.2 mg/dL (1.8-2.4) 05/17/19 01:29 Total Bilirubin 0.4 mg/dL (0.2-1) 05/18/19 06:16 AST 18 U/L (15-37) 05/18/19 06:16 ALT 15 U/L (13-61) 05/18/19 06:16 Alkaline Phosphatase 82 U/L (45-117) 05/18/19 06:16 Creatine Kinase 57 U/L (26-192) 05/17/19 01:29 Troponin I < 0.02 ng/ml (0.00-0.05) 05/17/19 01:29 B-Natriuretic Peptide 59.0 pg/ml (5-125) 05/17/19 01:29 Total Protein 6.9 g/dl (6.4-8.2) 05/18/19 06:16 Albumin 3.8 g/dl (3.4-5.0) 05/18/19 06:16 Vitamin B12 315 pg/ml (193-986) 05/18/19 06:16 Urine Color Yellow 05/17/19 02:45 Urine Appearance Clear 05/17/19 02:45 Urine pH 6.0 (5.0-8.0) 05/17/19 02:45 Ur Specific Dewitt 1.014 (1.010-1.035) 05/17/19 02:45 Urine Protein Negative (NEGATIVE) 05/17/19 02:45 Urine Glucose (UA) Negative (NEGATIVE) 05/17/19 02:45 Urine Ketones Negative (NEGATIVE) 05/17/19 02:45 Urine Blood Negative (NEGATIVE) 05/17/19 02:45 Urine Nitrite Negative (NEGATIVE) 05/17/19 02:45 Urine Bilirubin Negative (NEGATIVE) 05/17/19 02:45 Urine Urobilinogen 0.2 mg/dL (0.2-1.0) 05/17/19 02:45 Ur Leukocyte Esterase 2+ (NEGATIVE) H 05/17/19 02:45 Urine WBC (Auto) 9 /hpf (0-5) 05/17/19 02:45 Urine RBC (Auto) 1 /hpf (0-4) 05/17/19 02:45 Urine Casts (Auto) 3 /lpf (0-8) 05/17/19 02:45 U Epithel Cells (Auto) 3.5 /HPF (0-5/HPF) 05/17/19 02:45 Urine Bacteria (Auto) 43.7 /hpf (NEGATIVE) 05/17/19 02:45 Blood Type O POSITIVE 05/17/19 07:30 Antibody Screen Negative 05/16/19 23:50 Vital Signs Temp 98.3 F 05/19/19 05:00 Pulse 54 L 05/19/19 05:00 Resp 20 05/19/19 05:00 BP 144/60 05/19/19 05:00 Pulse Ox 95 05/18/19 21:00 Intake & Output 05/18/19 05/18/19 05/19/19 11:59 23:59 11:59 Intake Total 250 250 150 Balance 250 250 150 Weight 115.808 kg Intake: IV 0 saline lock 0 Oral 250 250 150 Other: Voiding Method Toilet Toilet Toilet Weight Measurement Method Standing Scale Condition: Stable - Instructions Diet, Activity, Other Instructions: Nature made or Nature's bounty vitamin B12, 2500 mcg, 1 tab under the tongue daily Referrals: Melvina Johnson MD [Staff Physician] - Disposition: HOME - Home Medications Comprehensive Discharge Medication List: Ambulatory Orders Alprazolam 0.5 mg PO BID 05/16/19 Carvedilol 25 mg PO DAILY 05/16/19 Chlorthalidone 25 mg PO DAILY 05/16/19 Montelukast Na [Singulair -] 10 mg PO HS 05/16/19 Sertraline HCl [Zoloft] 100 mg PO DAILY 05/16/19 Spironolactone 25 mg PO DAILY 05/16/19 Albuterol 2.5/Ipratropium 0.5 [Duoneb -] 1 amp NEB PRN 05/17/19 Albuterol Sulfate [Proair Hfa] 8.5 gm IH PRN 05/17/19 Calcium (Oyster Shell) [Os-Uriah 500MG -] 500 mg PO DAILY 05/17/19 Cyanocobalamin (Vitamin B-12) [Vitamin B12] 2,500 mcg PO DAILY 05/17/19 Acetaminophen [Tylenol .Regular Strength -] 650 mg PO Q4H PRN tablet 05/19/19
--- NOTE | 2019-05-19 10:54 | PN ---
Progress Note, Physician Chief Complaint: BLLE edema BLLE pain and weakness Hypocalcemia History of Present Illness: NAD Feels better Calcium normalized Seen by neurology and nephrology Lumbar CT shows multiple disc herniations, no acute pathology - Current Medication List Current Medications: Active Medications Acetaminophen (Tylenol -) 650 mg PO Q4H PRN PRN Reason: HEADACHE Last Admin: 05/19/19 03:26 Dose: 650 mg Albuterol/Ipratropium (Duoneb -) 1 amp NEB Q6H PRN PRN Reason: SHORTNESS OF BREATH Alprazolam (Xanax -) 0.5 mg PO BID [facility] Last Admin: 05/18/19 22:09 Dose: 0.5 mg Calcium Carbonate (Os-Uriah 500mg -) 500 mg PO DAILY [facility] Last Admin: 05/18/19 10:41 Dose: 500 mg Carvedilol (Coreg -) 25 mg PO BID [facility] Last Admin: 05/18/19 22:09 Dose: 25 mg Chlorthalidone (Hygroton -) 25 mg PO DAILY [facility] Last Admin: 05/18/19 10:41 Dose: 25 mg Cyanocobalamin (Vitamin B12 Injection -) 1,000 mcg IM DAILY [facility] Last Admin: 05/18/19 17:18 Dose: 1,000 mcg Montelukast Sodium (Singulair -) 10 mg PO HS [facility] Last Admin: 05/18/19 22:09 Dose: 10 mg Sertraline HCl (Zoloft -) 100 mg PO DAILY [facility] Last Admin: 05/18/19 10:40 Dose: 100 mg Spironolactone (Aldactone -) 25 mg PO DAILY [facility] Last Admin: 05/17/19 10:17 Dose: 25 mg - Objective Vital Signs: Vital Signs Temperature 98.3 F 05/19/19 05:00 Pulse Rate 54 L 05/19/19 05:00 Respiratory Rate 20 05/19/19 05:00 Blood Pressure 144/60 05/19/19 05:00 O2 Sat by Pulse Oximetry (%) 95 05/18/19 21:00 Constitutional: Yes: Well Nourished, No Distress, Calm, Obese Cardiovascular: Yes: Regular Rate and Rhythm Respiratory: Yes: Regular Gastrointestinal: Yes: Normal Bowel Sounds, Soft, Abdomen, Obese Genitourinary: Yes: WNL Musculoskeletal: Yes: Back Pain Extremities: Yes: WNL Edema: No Peripheral Pulses WNL: Yes Neurological: Yes: Alert, Oriented Psychiatric: Yes: Alert, Oriented Labs: CBC, BMP 05/18/19 06:16 05/18/19 14:00 INR, PTT INR 1.01 (0.83-1.09) 05/16/19 23:50 Problem List - Problems (1) Lumbar radicular pain Assessment/Plan: -Neurology consult -CT Lumbar spine reviewed, unable to do MRI due to PPM -EMG BLLE outpatient Code(s): M54.16 - RADICULOPATHY, LUMBAR REGION (2) HTN (hypertension) Assessment/Plan: -Continue home meds Code(s): I10 - ESSENTIAL (PRIMARY) HYPERTENSION (3) Hypocalcemia Assessment/Plan: -resolved -Calcium gluconate given in ER -resume spironolactone -Nephrology consult -PTH pending -Mg normal Code(s): E83.51 - HYPOCALCEMIA (4) Pacemaker Code(s): Z95.0 - PRESENCE OF CARDIAC PACEMAKER (5) Vitamin B 12 deficiency Assessment/Plan: -B12 2500 SL daily Code(s): E53.8 - DEFICIENCY OF OTHER SPECIFIED B GROUP VITAMINS (6) Morbid obesity with BMI of 45.0-49.9, adult Assessment/Plan: -encouraged weight loss -Mediterranean diet Code(s): E66.01 - MORBID (SEVERE) OBESITY DUE TO EXCESS CALORIES; Z68.42 - BODY MASS INDEX (BMI) 45.0-49.9, ADULT Assessment/Plan see problem list
[2019-05-19] MEDS: CALCIUM (OYSTER SHELL) 500 MG TABLET (FP) PO SCH (10:56)
[2019-05-19] MEDS: SERTRALINE HCL 50 MG TABLET (FP) PO SCH (10:56)
[2019-05-19] MEDS: CHLORTHALIDONE 25 MG TABLET PO SCH (10:56)
[2019-05-19] MEDS: SPIRONOLACTONE 25 MG TABLET (FP) PO SCH (10:56)
[2019-05-19] MEDS: CARVEDILOL 25 MG TABLET (FP) PO SCH (10:56)
[2019-05-19] MEDS: ALPRAZolam 0.25 MG TABLET PO SCH (10:57)
[2019-05-19] MEDS: CYANOCOBALAMIN (VITAMIN B-12) 1000 MCG/1 ML VIAL IM SCH (10:57)
[2019-05-19 11:05] VITALS: BP 134/74; PULSE 55; TEMP 98
== END 2019-05-19 14:05 | disposition home or self-care (01) | DRG 552 ==
LOC: JER 22:08 → JERBED 05-17 03:18 → J7W 05-17 06:49
PROVIDERS: ADMIT Family Medicine; ATTEND Family Medicine
DX: M51.16 Intervertebral disc disorders with radiculopathy, lumbar region (principal); Z68.42 Body mass index [BMI] 45.0-49.9, adult; E83.51 Hypocalcemia; I10 Essential (primary) hypertension; I50.9 Heart failure, unspecified; J45.909 Unspecified asthma, uncomplicated; F41.9 Anxiety disorder, unspecified; E66.01 Morbid (severe) obesity due to excess calories; G57.93 Unspecified mononeuropathy of bilateral lower limbs; E78.5 Hyperlipidemia, unspecified; Z95.0 Presence of cardiac pacemaker; R53.1 Weakness
CPT/HCPCS: 36415; 70450-TC; 71045-TC-FY; 72131-TC; 80048; 80053; 81003; 82310; 82550; 82607; 83735; 83880; 83970; 84100; 84484; 85025; 85027; 85610; 85730; 86850; 86900; 86901; 93005; 93010; 93970-TC; 95860-TC; 99285-25